=== PATIENT | female | born 1940 | race Caucasian/White ===

== ENCOUNTER → 2020-05-26 | Outpatient (REF) | payer MEDICARE ==
[2020-05-26 17:32] LABS: INR 2.73; PROTHROMBIN TIME 28.8 SECONDS (11.8-14.0)
== END ==
LOC: M LABDRAWC 16:01
PROVIDERS: ATTEND Internal Medicine Cardiovascular Disease
DX: I48.0 Paroxysmal atrial fibrillation (principal); Z95.2 Presence of prosthetic heart valve

== ENCOUNTER → 2020-06-12 | Outpatient (REF) | payer MEDICARE ==
[2020-07-12 01:10] LABS: INR 3.24; PROTHROMBIN TIME 33.8 SECONDS (11.8-14.0)
== END ==
LOC: M LABDRAWC 16:43
PROVIDERS: ATTEND Internal Medicine Cardiovascular Disease
DX: I48.0 Paroxysmal atrial fibrillation (principal); Z95.2 Presence of prosthetic heart valve

== ENCOUNTER → 2020-06-19 | Outpatient (REF) | payer MEDICARE ==
[2020-07-23 10:49] LABS: INR 2.95; PROTHROMBIN TIME 31.4 SECONDS (11.8-14.0)
== END ==
LOC: M LABDRAWC 06:28
PROVIDERS: ATTEND Internal Medicine Cardiovascular Disease
DX: I48.0 Paroxysmal atrial fibrillation (principal); Z95.2 Presence of prosthetic heart valve

== ENCOUNTER → 2020-06-30 | Outpatient (REF) | payer MEDICARE ==
[2020-06-30 18:06] LABS: INR 2.54; PROTHROMBIN TIME 27.9 SECONDS (11.8-14.0)
== END ==
LOC: M LABDRAWC 17:02
PROVIDERS: ATTEND Internal Medicine Cardiovascular Disease
DX: I48.0 Paroxysmal atrial fibrillation (principal); Z95.2 Presence of prosthetic heart valve